=== PATIENT | male | born 1965 | race Hispanic/Latino ===

== ENCOUNTER → 2019-12-28 | Outpatient (CLI) | payer BC ==
[~2019-12-28] MED LIST: GADOBENATE DIMEGLUMINE 1 ML IV ONE; IOPAMIDOL 300 MG/ML 15ML VIAL IT ONE; LIDOCAINE HCL 1% LOCAL INJ 20 ML VIAL ONE
--- NOTE | 2019-12-28 10:55 | Diagnostic Imaging Report ---
EXAM: INJECTION ARTHROGRAM SHOULDER DATE: 12/28/2019 9:18 AM INDICATION: Right shoulder pain COMPARISON: None Physician performing procedure: Dr. Leonor Weiner PROCEDURES PERFORMED: Fluoroscopically-guided right glenohumeral joint arthrogram with MRI to follow Fluoro time: 1.3 minutes Dose: 5.2mGy Anesthesia: Local, 1% lidocaine Devices: 22 gauge BD Quincke needle PROCEDURE REPORT: After written and verbal consent were obtained, the patient was placed supine on the fluoroscopy table with the right glenohumeral joint in external rotation. Using fluoroscopic guidance, sterile technique and local anesthesia, a 22 gauge, 3.5 inch needle was inserted percutaneously into the right glenohumeral joint. Proper placement was confirmed by injecting Isovue 300 into the joint under fluoroscopy. Next, 10cc of a 1:200 mixture of Multihance with Isovue 300 and saline was then injected. Complications: None Blood loss: Minimal Samples: None Patient disposition: MRI in stable condition. IMPRESSION: Uncomplicated fluoroscopically-guided right glenohumeral arthrogram with MRI to follow. Contrast is within the joint. See MRI report for full findings. Signed by: Leonor Weiner MD on 12/28/2019 10:52 AM
--- NOTE | 2019-12-28 11:06 | Diagnostic Imaging Report ---
MRI of the right shoulder with contrast. History: Shoulder pain. Impingement syndrome. Decreased range of motion. Pain not responding to conservative management. Comparison: Arthrogram from the same day Technique: Multiplanar multisequence MRI of the shoulder after the administration of intra-articular gadolinium contrast material Findings: Rotator cuff: Rotator cuff tendinosis with midsubstance degeneration and mild articular sided fraying involving the anterior fibers of the supraspinatus and infraspinatus tendons at the humeral insertion site. Additionally, there is subscapularis tendinosis. The teres minor tendon is intact. No full-thickness rotator cuff tear, muscle atrophy or retraction. Osseous acromion complex: Type II acromion with mild lateral downsloping. Moderate degenerative arthrosis at the acromioclavicular joint with undersurface spurring and narrowing of the supraspinatus tendon outlet. Glenohumeral joint: Circumferential degenerative type tearing of the labrum. Advanced articular cartilage loss in the glenohumeral joint with joint space loss, subchondral cystic change, bone marrow edema, peripheral osteophytosis, remodeling of the glenoid and synovitis/debris. Gadolinium contrast material is seen filling the glenohumeral joint. Biceps tendon: The biceps tendon is intact. Other findings: Negative for muscle denervation or osseous fracture. Impression: Circumferential degenerative type tearing of the labrum. Advanced articular cartilage loss in the glenohumeral joint with joint space loss, subchondral cystic change, bone marrow edema, peripheral osteophytosis, remodeling of the glenoid and synovitis/debris. Rotator cuff tendinosis with midsubstance degeneration and mild articular sided fraying involving the anterior fibers of the supraspinatus and infraspinatus tendons at the humeral insertion site. Additionally, there is subscapularis tendinosis. The teres minor tendon is intact. No full-thickness rotator cuff tear, muscle atrophy or retraction Signed by: Dr. Rico Sheffield M.D. on 12/28/2019 11:03 AM
== END ==
LOC: DX 09:02
PROVIDERS: ATTEND Orthopaedic Surgery
DX: M75.41 Impingement syndrome of right shoulder (principal); S43.411A Sprain of right coracohumeral (ligament), initial encounter
CPT/HCPCS: 23350; 73222; A9577; J2001; Q9967